=== PATIENT | female | born 1970 | race Caucasian/White ===

== ENCOUNTER → 2021-02-21 | Outpatient (CLI) | payer BC | LOC: RAD 07:30 | DX: M22.41 Chondromalacia patellae, right knee (principal) ==

== ENCOUNTER → 2022-03-12 | Outpatient (CLI) | payer BC | LOC: RAD 09:58 | DX: M22.42 Chondromalacia patellae, left knee (principal); M71.22 Synovial cyst of popliteal space [Baker], left knee; M23.204 Derangement of unspecified medial meniscus due to old tear or injury, left knee; M17.12 Unilateral primary osteoarthritis, left knee ==